=== PATIENT | female | born 1955 | race Caucasian/White ===

== ENCOUNTER 2020-08-01 08:18 | Inpatient (IN) | payer MEDICARE ==
[~2020-08-01] VITALS: Ht 210.8 cm; Wt 87.5 kg
--- NOTE | ~2020-08-01 | OP ---
[facility] [address] [place] [address] OPERATIVE REPORT Name: SHONA JACOBS Room: [address] IN .R.#: [id number] Admission: 08/01/20 Attend Phys: Aurelio Mancia Discharge: Date of : 57 Report #: [id number] THIS REPORT FOR: cc: Ludwin Denise MD, Usman MD Paul, Robert F. DO ~ DOC #: [id number] Nicolás Tejada DO DATE OF SURGERY: 08/03/2020 PREOPERATIVE DIAGNOSIS: Right distal femur periprosthetic fracture. POSTOPERATIVE DIAGNOSIS: Right distal femur periprosthetic fracture with stable implants. PROCEDURE PERFORMED: Closed reduction with insertion of retrograde femoral nail. SURGEON: Nicolás Tejada DO. ASSISTANTS: Kristina Argueta DO, He aBrrett DO and Mj Bui DO. ANESTHESIA: General. ANTIBIOTICS: 2 grams IV Ancef, redosed at the end of the procedure. ESTIMATED BLOOD LOSS: 150 mL. DRAINS: None. COMPLICATIONS: None. SPECIMENS: None. CONDITION: The patient is stable. DISPOSITION: PACU to Med/Surg floor. IMPLANTS: Eckerty 420 x 12 mm retrograde femoral nail with 3 distal interlocks and 1 proximal interlock. INDICATIONS FOR PROCEDURE: The patient is a pleasant 65-year-old female who sustained a ground level fall at home, Tuesday morning. After the fall, she noticed immediate knee pain and inability to bear weight on her right lower extremity. Radiographs in the Emergency Department demonstrated a right distal femur periprosthetic fracture. We discussed treatment options with the patient [facility] [address] [place] [address] OPERATIVE REPORT Name: SHONA JACOBS Room: [address] IN M.R.#: [id number] Admission: 08/01/20 Attend Phys: Aurelio Mancia Discharge: Date of : 57 Report #: [id number] including a retrograde nail, distal femur locking plate, and distal femoral replacement pending stability of the patient's components. The patient underwent a CT scan as well for preoperative planning. The risks, benefits, complications and alternatives of procedure were thoroughly discussed with the patient. She accepted the risks and wished to proceed. Written consent was obtained for the procedure. DESCRIPTION OF PROCEDURE: The patient was seen in the preoperative suite. The operative extremity was marked by the operative surgeon. Everyone in the preoperative suite was in agreement of the correct side, site, patient and procedure. The patient was then transported to the operative suite and placed supine on a well-padded operating table. She was again given the benefit of general anesthesia and 2 grams of IV Ancef. A bump was placed under the patient's right hip to aid in positioning throughout the procedure. Preprocedure fluoroscopic imaging was obtained. Closed reduction of the patient's fracture was able to be achieved and the decision was made to proceed with insertion of retrograde femoral nail. The right lower extremity was then prepped and draped in the typical sterile fashion. A time-out was performed to confirm correct side, site, patient and procedure. Everyone in the operative suite and was in agreement. The procedure began by marking out the patient's prior total knee incision. Utilizing the distal half of the patient's prior incision, incision was made through skin and subcutaneous tissue down to the level of the patellar tendon with a scalpel. A new scalpel was then utilized to longitudinally split the patellar tendon and capsule. A large hemarthrosis was encountered. A large radiolucent triangle was then placed under the right knee. The starting guidewire was then placed under direct fluoroscopic imaging and confirmed to be in the appropriate position on AP and lateral fluoroscopic imaging. With the help of the assistance, longitudinal traction as well as varus stress was placed on the patient's fracture that was confirmed to be reduced on AP and lateral fluoroscopic imaging. The starting guidewire was then advanced proximal to the fracture. The starting reamer was then introduced and reamed past the fracture site. Both the starting reamer and the starting guidewire were removed. The ball-tipped guidewire was then passed, confirmed to be in the intramedullary canal, up to the level of the proximal lesser trochanter. Before reaming, a periarticular clamp was then utilized to hold the reduction throughout the reaming process. Two small incisions, 1 medial and 1 lateral were made to allow the periarticular clamp to hold the reduction. We then turned our attention to reaming the medullary canal. We started with a 9 mm reamer and sequentially reamed up to a 13.5 mm reamer, which demonstrated chatter at the isthmus. We then measured the ball-tipped guidewire, which measured a 420 mm nail. We decided to proceed with insertion of the 420 x 12 mm Eckerty retrograde femoral nail. The nail was placed on the copyman and was malleted into position, confirmed to be in correct position and alignment as well as maintaining [address] [address] OPERATIVE REPORT Name: SHONA JACOBS Room: [address] IN M.R.#: [id number] Admission: 08/01/20 Attend Phys: Aurelio Mancia Discharge: Date of : 57 Report #: [id number] reduction of the patient's fracture on both AP and lateral imaging at the knee and the hip. The knee was malleted into the correct position distally to ensure adequate bone stock for the distal interlock screws. We then turned our attention to placement of the distal interlocks starting with the most distal screw first. The triple sleeve was advanced through the nail guide. A small incision was made through skin and subcutaneous tissue, hemostat was utilized to spread down to bone, and the screw was then drilled, measured, and the appropriate length screw was placed by hand. The 2 remaining lateral distal interlocks were placed in a similar fashion. We then turned our attention to the medial distal interlock that was not able to be inserted secondary to the drill coming in contact with the anterior aspect of the femoral component. We then turned our attention to placement of the proximal interlocks. Under fluoroscopic imaging, perfect circles were obtained, and a 2 cm incision was made through skin and subcutaneous tissue. A hemostat was then utilized to bluntly dissect down to the level of the bone. The drill was confirmed to be in line with the static proximal interlock on fluoroscopic imaging and the drill was passed bicortically. The proximal interlock was measured and the appropriate length screw was opened. While attempting to place the proximal interlock, the screw fell off the screwdriver and fell into the soft tissues. A separate incision anteriorly was then made to retrieve the screw. Care was taken to protect neurovascular structures at all times. Under direct fluoroscopic imaging, the screw was able to be retrieved with a hemostat. Fluoroscopic images confirmed removal of the screw. Final fluoroscopic images were taken demonstrating a stable retrograde femoral nail with maintained reduction of her fracture. Final fluoroscopic images were saved. All incisions were thoroughly irrigated with normal saline. The patellar tendon was repaired with a pbzm-va-utoz repair in a jiofox-ex-ktcwu fashion with an 0 Vicryl. All incisions were then closed with 2-0 Monocryl in interrupted fashion followed by 3-0 nylon in either interrupted or running fashion. The skin was then closed with a wet-to-dry dressing. Mepilex were placed over all incisions. The patient was awoken from general anesthesia and transferred to PACU in stable condition. The patient was redosed with IV Ancef at the end of the procedure. All counts were correct x 2. I attest that Dr. Nicolás Tejada was present through all critical aspects of this procedure. POSTOPERATIVE PLAN: The patient will be on DVT prophylaxis, both pharmacological and mechanical. She will be toe touch weightbearing to her right lower extremity for safe transfers. She will work with physical therapy and occupational therapy during her inpatient stay. She will have analgesics as needed. We will continue to follow her throughout her inpatient course. Nicolás Tejada DO [facility] [place] [address] OPERATIVE REPORT Name: SHONA JACOBS Room: [address] IN M.R.#: [id number] Admission: 08/01/20 Attend Phys: Aurelio Mancia Discharge: Date of : 57 Report #: [id number] By: 1239 DO giselle Andino
[~2020-08-01 08:18] MED LIST: AMBIEN 10 MG TA10 MG PO; CARDIZEM PO; PRINIVIL PO; PROZAC 20 MG20 M1 PO; XANAX 0.5 MG0.5 MG PO
[2020-08-01 08:20] VITALS: BP 123/66
[2020-08-01] MEDS ORDERED: RAYOS5 MG PO (08:26)
[2020-08-01] MEDS ORDERED: CELLCEPT500 MG PO (08:26)
[2020-08-01] MEDS ORDERED: OMEPRAZOLE40 MG PO (08:26)
[2020-08-01] MEDS ORDERED: NEXIUM20 MG PO (08:26)
[2020-08-01] MEDS ORDERED: NORCO 10-325 T1 EACH PO (08:27)
[2020-08-01 09:08] LABS: ABSOLUTE BASOPHILS 0.1 thou/uL (0.0-0.2); ABSOLUTE EOSINOPHILS 0.1 thou/uL (0.0-0.7); ABSOLUTE LYMPHOCYTES 2.6 thou/uL (0.8-5.3); ABSOLUTE MONOCYTES 0.9 thou/uL (0.0-1.2); ABSOLUTE NEUTROPHILS 7.6 thou/uL (1.6-8.1); BASOPHILS 0.6 %; EOSINOPHILS 0.7 %; HEMATOCRIT 33.4 % (37.0-47.0); HEMOGLOBIN 11.3 gm/dL (12.0-15.0); LYMPHOCYTES 22.9 %; MCH 30.8 pg (26.0-34.0); MCHC 33.9 g/dL (28.0-37.0); MCV 90.7 fL (80.0-100.0); MONOCYTES 8.2 %; MPV 6.8 fl. (7.2-11.1); NUCLEATED RBCS 0 /100WBC; PLATELET COUNT* 267 thou/uL (150-400); POLYS 67.6 %; RBC 3.68 mil/uL (4.20-5.00); RDW-CV 13.2 % (10.5-14.5); WBC 11.3 thou/uL (4.0-11.0)
[2020-08-01 09:18] LABS: CALCIUM 8.4 mg/dL (8.5-10.1); CREATININE 0.8 mg/dL (0.6-1.3); POTASSIUM 3.4 mmol/L (3.5-5.1)
[2020-08-01 09:23] LABS: ALBUMIN 3.4 g/dL (3.4-5.0); TOTAL BILIRUBIN 0.2 mg/dL (<0.1-1.0); TOTAL PROTEIN 6.7 g/dL (6.4-8.2)
[2020-08-01 13:08] VITALS: BP 113/66
[2020-08-01 13:30] VITALS: BP 154/88
[2020-08-01 13:32] LABS: URINE BILIRUBIN NEGATIVE (Negative); URINE BLOOD NEGATIVE (Negative); URINE CLARITY CLEAR; URINE COLOR YELLOW; URINE GLUCOSE-RANDOM NEGATIVE (Negative); URINE KETONES NEGATIVE (Negative); URINE LEUKOCYTES NEGATIVE (Negative); URINE NITRITE NEGATIVE (Negative); URINE PROTEIN NEGATIVE (Negative); URINE UROBILINOGEN 0.2 E.U./dl (0.2-1.0)
[2020-08-01 13:40] LABS: AMP/METHAMP Negative (Negative); BARBITURATES Negative (Negative); BENZODIAZEPINES Negative (Negative); COCAINE Negative (Negative); METHADONE Negative (Negative); OPIATES POSITIVE (Negative); PCP Negative (Negative); THC Negative (Negative)
--- NOTE | 2020-08-01 14:30 | EKG ---
[place] [address] ELECTROCARDIOGRAM REPORT Name: SHONA JACOBS Room: [address] ADM IN M.R.#: [id number] Admission: 08/01/20 Attend Phys: Alexis Fitzpatrick Discharge: Date of : 57 Date of Service: 08/01/20 0957 Report #: [id number] THIS REPORT FOR: //name// [facility] ED Test Date: 2020-08-01 Test Time: 09:57:19 Pat Name: SHONA JACOBS Department: Room: [facility] Gender: F Exhauster: LESLIE : 1955 Requested By: Preston Knutson Order Number: [id number] MD: Jose Pickering Measurements Intervals [place] Rate: 89 P: 78 ND: 128 QRS: 52 QRSD: 98 T: 212 QT: 324 QTc: 395 Interpretive Statements Sinus rhythm Borderline low voltage, extremity leads Nonspecific inferior and anterolateral ST-T abnormalities Baseline wander in lead(s) V3 Compared to ECG 05/24/2010 08:14:[address]-T abnormalities have diminished Electronically Signed On 08-01-2020 14:30:32 CDT by Jose Pickering [email or web address] <ELECTRONICALLY SIGNED> By: Jose Pickering MD, [facility] 08/01/20 1430 0957 Jose Pickering MD, [facility] /EPI
[2020-08-01 16:00] VITALS: BP 102/63
[2020-08-01 21:10] VITALS: BP 123/63
[2020-08-02 08:00] VITALS: BP 97/54
[2020-08-02 09:26] LABS: HEMATOCRIT 31.9 % (37.0-47.0); HEMOGLOBIN 10.8 gm/dL (12.0-15.0); MCH 31.2 pg (26.0-34.0); MCHC 33.9 g/dL (28.0-37.0); MPV 7.7 fl. (7.2-11.1); RBC 3.47 mil/uL (4.20-5.00); RDW-CV 13.3 % (10.5-14.5)
[2020-08-02 09:36] LABS: CALCIUM 8.1 mg/dL (8.5-10.1); CREATININE 0.7 mg/dL (0.6-1.3); POTASSIUM 3.5 mmol/L (3.5-5.1)
[2020-08-02 16:14] VITALS: BP 90/52
[2020-08-02 17:21] VITALS: BP 100/54
[2020-08-02 18:33] VITALS: BP 85/54
[2020-08-02 19:38] VITALS: BP 90/52
[2020-08-03 01:40] VITALS: BP 129/69
[2020-08-03 08:00] VITALS: BP 122/70
[2020-08-03 08:29] LABS: HEMATOCRIT 30.4 % (37.0-47.0); HEMOGLOBIN 10.4 gm/dL (12.0-15.0); MCH 31.7 pg (26.0-34.0); MCHC 34.2 g/dL (28.0-37.0); MCV 92.7 fL (80.0-100.0); MPV 7.8 fl. (7.2-11.1); RBC 3.28 mil/uL (4.20-5.00); WBC 8.9 thou/uL (4.0-11.0)
[2020-08-03 08:53] LABS: CALCIUM 8.1 mg/dL (8.5-10.1); CREATININE 0.8 mg/dL (0.6-1.3); POTASSIUM 3.2 mmol/L (3.5-5.1)
[2020-08-03 20:17] VITALS: BP 111/68
[2020-08-04 00:43] VITALS: BP 119/63
[2020-08-04 04:14] VITALS: BP 147/82
[2020-08-04 04:26] LABS: HEMATOCRIT 26.4 % (37.0-47.0); MCH 31.8 pg (26.0-34.0); MCHC 34.2 g/dL (28.0-37.0); RBC 2.84 mil/uL (4.20-5.00); RDW-CV 12.7 % (10.5-14.5); WBC 8.9 thou/uL (4.0-11.0)
[2020-08-04 04:29] LABS: CALCIUM 7.8 mg/dL (8.5-10.1); CREATININE 0.7 mg/dL (0.6-1.3); POTASSIUM 3.4 mmol/L (3.5-5.1)
[2020-08-04 08:10] VITALS: BP 142/74
[2020-08-04 16:22] VITALS: BP 113/60
[2020-08-04 19:45] VITALS: BP 135/77
[2020-08-05 03:50] LABS: HEMATOCRIT 24.9 % (37.0-47.0); HEMOGLOBIN 8.5 gm/dL (12.0-15.0); MCH 31.6 pg (26.0-34.0); MCHC 34.1 g/dL (28.0-37.0); MCV 92.8 fL (80.0-100.0); MPV 7.6 fl. (7.2-11.1); RBC 2.68 mil/uL (4.20-5.00); RDW-CV 12.8 % (10.5-14.5); WBC 9.3 thou/uL (4.0-11.0)
[2020-08-05 04:12] LABS: ALBUMIN 2.1 g/dL (3.4-5.0); CALCIUM 8.5 mg/dL (8.5-10.1); CREATININE 0.6 mg/dL (0.6-1.3); MAGNESIUM 1.6 mg/dL (1.8-2.4); POTASSIUM 3.2 mmol/L (3.5-5.1); TOTAL BILIRUBIN 0.4 mg/dL (<0.1-1.0); TOTAL PROTEIN 5.5 g/dL (6.4-8.2)
[2020-08-05 08:06] VITALS: BP 132/67
[2020-08-05 17:15] VITALS: BP 124/66
[2020-08-05 19:37] LABS: MAGNESIUM 1.6 mg/dL (1.8-2.4); POTASSIUM 3.9 mmol/L (3.5-5.1)
[2020-08-05 21:00] VITALS: BP 112/64
[2020-08-06 08:10] VITALS: BP 124/73
[2020-08-06 15:47] VITALS: BP 121/60
[2020-08-06 21:40] VITALS: BP 128/78
[2020-08-07] MEDS ORDERED: LISINOPRIL10 MG PO (08:42)
[2020-08-07] MEDS ORDERED: CARDIZEM CD120 MG PO (08:42)
[2020-08-07] MEDS ORDERED: ELIQUIS5 MG PO (08:42)
[2020-08-07] MEDS ORDERED: OXYCODONE HCL 55 MG PO (08:42)
[2020-08-07] MEDS ORDERED: PROTONIX40 M2 PO (08:42)
[2020-08-07] MEDS ORDERED: TRAMADOL 50 MG50 MG PO (08:42)
[2020-08-07 16:00] VITALS: BP 112/60
[2020-08-07 20:52] VITALS: BP 123/66
[2020-08-08 00:54] VITALS: BP 155/87
[2020-08-08 08:25] VITALS: BP 115/67
[2020-08-08 15:30] VITALS: BP 131/77
[2020-08-08 20:43] VITALS: BP 145/78
[2020-08-09 08:25] VITALS: BP 143/80
[2020-08-09 15:53] VITALS: BP 143/76
[2020-08-09 20:00] VITALS: BP 146/80
[2020-08-10 00:07] VITALS: BP 156/80
[2020-08-10 04:03] VITALS: BP 146/83
[2020-08-10 06:18] LABS: HEMATOCRIT 24.9 % (37.0-47.0); HEMOGLOBIN 8.6 gm/dL (12.0-15.0); MCH 31.5 pg (26.0-34.0); MCHC 34.7 g/dL (28.0-37.0); MCV 90.8 fL (80.0-100.0); MPV 7.8 fl. (7.2-11.1); RBC 2.74 mil/uL (4.20-5.00); RDW-CV 13.2 % (10.5-14.5); WBC 8.9 thou/uL (4.0-11.0)
[2020-08-10 06:23] LABS: CALCIUM 8.9 mg/dL (8.5-10.1); CREATININE 0.7 mg/dL (0.6-1.3)
[2020-08-10 06:53] LABS: POTASSIUM 2.6 mmol/L (3.5-5.1)
[2020-08-10 08:00] VITALS: BP 138/73
[2020-08-10 15:54] VITALS: BP 124/69
[2020-08-10 21:00] VITALS: BP 152/73
[2020-08-11 05:43] LABS: HEMATOCRIT 25.4 % (37.0-47.0); HEMOGLOBIN 8.7 gm/dL (12.0-15.0); MCH 30.9 pg (26.0-34.0); MCV 90.9 fL (80.0-100.0); MPV 7.8 fl. (7.2-11.1); RBC 2.8 mil/uL (4.20-5.00); RDW-CV 13.4 % (10.5-14.5); WBC 10.1 thou/uL (4.0-11.0)
[2020-08-11 05:54] LABS: CALCIUM 8.6 mg/dL (8.5-10.1); CREATININE 0.7 mg/dL (0.6-1.3); POTASSIUM 3.3 mmol/L (3.5-5.1)
[2020-08-11 08:15] VITALS: BP 94/53
[2020-08-11 16:42] VITALS: BP 120/72
[2020-08-11 21:00] VITALS: BP 122/72
[2020-08-12 08:20] VITALS: BP 157/87
[2020-08-12 15:38] VITALS: BP 113/70
[2020-08-12 20:00] VITALS: BP 131/74
[2020-08-13 04:43] LABS: HEMATOCRIT 27.4 % (37.0-47.0); HEMOGLOBIN 9.4 gm/dL (12.0-15.0); MCHC 34.4 g/dL (28.0-37.0); MCV 90.4 fL (80.0-100.0); MPV 7.9 fl. (7.2-11.1); RBC 3.04 mil/uL (4.20-5.00); RDW-CV 13.8 % (10.5-14.5)
[2020-08-13 04:54] LABS: CALCIUM 9.1 mg/dL (8.5-10.1); CREATININE 0.7 mg/dL (0.6-1.3); POTASSIUM 3.6 mmol/L (3.5-5.1)
[2020-08-13 07:52] VITALS: BP 139/73
[2020-08-13 09:02] VITALS: BP 139/73
== END 2020-08-13 15:50 | DRG 481 ==
LOC: M.ERS 08:18 → M.TBA-ER 10:22 → M.ORTHSURG 10:22
PROVIDERS: Emergency Medicine; Family Medicine; Internal Medicine; ADMIT Internal Medicine; ATTEND Internal Medicine
PROC: 0QSB34Z Reposition Right Lower Femur with Internal Fixation Device, Percutaneous Approach (ICD-10-PCS; principal; 2020-08-03)
DX: S72.401A Unspecified fracture of lower end of right femur, initial encounter for closed fracture (principal); M97.01XA Periprosthetic fracture around internal prosthetic right hip joint, initial encounter; R71.0 Precipitous drop in hematocrit; E44.1 Mild protein-calorie malnutrition; Z68.1 Body mass index [BMI] 19.9 or less, adult; D72.829 Elevated white blood cell count, unspecified; Z20.822 Contact with and (suspected) exposure to COVID-19; I10 Essential (primary) hypertension; Z96.651 Presence of right artificial knee joint; G62.9 Polyneuropathy, unspecified; E87.6 Hypokalemia; M19.90 Unspecified osteoarthritis, unspecified site; Z86.19 Personal history of other infectious and parasitic diseases; Z88.8 Allergy status to other drugs, medicaments and biological substances; W18.39XA Other fall on same level, initial encounter; Y93.89 Activity, other specified; Y92.89 Other specified places as the place of occurrence of the external cause; Y99.8 Other external cause status